=== PATIENT | male | born 1955 | race Caucasian/White ===

== ENCOUNTER 2017-07-02 14:31 | Inpatient (IN) | payer SELFPAY ==
[~2017-07-02] VITALS: Ht 175.3 cm; Wt 88.0 kg
[2017-07-02] MEDS ORDERED: RIVA15T PO (14:37)
[2017-07-02] MEDS ORDERED: IOVERSOL 350 MG/ML 100 ML VIAL ONE (14:45)
[2017-07-02] MEDS ORDERED: SODIUM CHLORIDE 0.9% 100 ML ONE (14:45)
[2017-07-02] MEDS ORDERED: IOVERSOL 320 MG/ML 100 ML VIAL ONE (14:48)
[2017-07-02 14:50] LABS: BASOPHILS % (AUTO) 1.1 % (0.0-2.0); EOSINOPHILS % (AUTO) 5.2 % (1.0-6.0); HEMATOCRIT 37.4 % (41-53); HEMOGLOBIN 12.3 g/dL (13.5-17.5); LYMPHOCYTES % (AUTO) 12.8 % (22.0-44.0); MEAN CORPUSCULAR VOLUME 85 fL (80-100); MONOCYTES # (AUTO) 1.5 K/uL (0.1-1.0); MONOCYTES % (AUTO) 6.4 % (2.0-9.0); NEUTROPHILS # (AUTO) 17.5 K/uL (1.8-7.7); NEUTROPHILS % (AUTO) 74.5 % (40.0-70.0); PLATELET COUNT (AUTO) 341 K/uL (150-450); RED BLOOD CELL COUNT(AUTO) 4.39 MIL/uL (4.50-5.90); RED CELL DISTRIBUTION WIDTH 14.8 % (11.5-14.5)
[2017-07-02 14:59] LABS: ANION GAP 7 mmol/L (8-16); CARBON DIOXIDE 32 mmol/L (22-29); CHLORIDE 98 mmol/L (98-107); GLOMERULAR FILTR. RATE CALC 51 mL/min (>60); GLUCOSE,RANDOM 201 mg/dL (70-110); POTASSIUM 3.5 mmol/L (3.5-5.1); SODIUM SERUM 137 mmol/L (136-145); UREA NITROGEN, BLOOD 27 mg/dL (7-18)
[2017-07-02] MEDS ORDERED: DEXTROSE 50%-WATER 25 GM/50 ML SYRINGE IVP PRN (15:00)
[2017-07-02] MEDS ORDERED: ACETAMINOPHEN 325 MG TABLET PO PRN (15:00)
[2017-07-02] MEDS ORDERED: PERMETHRIN 5% 60 GM CREAM TP ONE (15:00)
[2017-07-02] MEDS ORDERED: MAGNESIUM HYDROXIDE SUSPENSION 30 ML UDCUP PO PRN (15:00)
[2017-07-02] MEDS ORDERED: SODIUM CHLORIDE 0.9% 1,000 ML IV ONE ×2 (15:00→15:45)
[2017-07-02 15:06] LABS: B-TYPE NATRIURETIC PEPTIDE 79 pg/mL (0-100)
[2017-07-02 15:17] LABS: GLUCOSE,POINT OF CARE 175 MG/DL (70-110)
[2017-07-02 15:24] LABS: ALANINE AMINOTRANSFERASE 29 U/L (12-78); ALBUMIN 3.2 g/dL (3.4-5.0); ALKALINE PHOSPHATASE 92 U/L (46-116); ASPARTATE AMINOTRANSFERASE 21 U/L (15-37); BILIRUBIN,TOTAL 0.6 mg/dL (0.1-1.0); CREATINE KINASE MB 2.1 ng/mL (0-5); CREATINE KINASE, TOTAL 155 U/L (39-308); TOTAL PROTEIN, SERUM 6.7 g/dL (6.4-8.2)
[2017-07-02 15:52] LABS: APPEARANCE,URINE CLEAR (CLEAR); BILIRUBIN,URINE NEGATIVE (NEGATIVE); GLUCOSE, URINE (UA) 100 mg/dL (NEGATIVE); KETONES,URINE NEGATIVE (NEGATIVE); OCCULT BLOOD,URINE NEGATIVE (NEGATIVE); PROTEIN,URINE NEGATIVE (NEGATIVE)
[2017-07-02 15:53] LABS: LEUKOCYTE ESTERASE ,URINE NEGATIVE (NEGATIVE); NITRATE,URINE NEGATIVE (NEGATIVE); UROBILINOGEN,URINE 0.2 mg/dL (<=1.0)
[2017-07-02 15:55] LABS: AMPHET/METH SCREEN,URINE NEGATIVE (NEGATIVE); BARBITURATE SCREEN, URINE NEGATIVE (NEGATIVE); BENZODIAZEPINES SCREEN,URINE NEGATIVE (NEGATIVE); CANNABINOID SCREEN,URINE NEGATIVE (NEGATIVE); COCAINE SCREEN,URINE NEGATIVE (NEGATIVE); METHADONE SCREEN, URINE NEGATIVE (NEGATIVE); OPIATE SCREEN,URINE POSITIVE (NEGATIVE); PHENCYCLIDINE SCREEN,URINE NEGATIVE (NEGATIVE); RBC,URINE None Seen /HPF (0-2)
[2017-07-02 15:56] LABS: BACTERIA,URINE None Seen /HPF (None Seen); WBC,URINE 0-2 /HPF (0-5)
[2017-07-02 15:57] LABS: SQUAMOUS EPITHELIAL CELL,UR Rare /LPF (None Seen)
[2017-07-02] MEDS: ATORVASTATIN CALCIUM 20 MG TABLET PO SCH (16:00)
[2017-07-02] MEDS: LINEZOLID 600 MG/ISO-OSM 300 ML IV SCH (16:02)
[2017-07-02 16:16] LABS: INR 1.3 (0.9-1.1); PROTHROMBIN TIME 13.4 SEC (9.4-11.6)
[2017-07-02] MEDS ORDERED: DIPH12.54 PO (16:39)
[2017-07-02] MEDS ORDERED: DIPH25 PO (16:39)
[2017-07-02] MEDS ORDERED: CYAN100 PO (16:39)
[2017-07-02] MEDS ORDERED: ASPI81 PO (16:39)
[2017-07-02] MEDS ORDERED: OMEP20 PO (16:39)
[2017-07-02] MEDS ORDERED: AMLO-511 PO (16:39)
[2017-07-02] MEDS ORDERED: ALBUTEROL SULFATE 2.5 MG/0.5 ML NEB SOLUTION NEB ONE (17:30)
[2017-07-02] MEDS ORDERED: IPRATROPIUM BROMIDE 0.5 MG/2.5 ML NEB SOLUTION NEB ONE (17:30)
[2017-07-02] MEDS ORDERED: GADOBUTROL 1 MMOL/ML 10 ML VIAL IVP ONE (17:45)
[2017-07-02] MEDS ORDERED: LORazepam 1 MG TABLET PO ONE (18:30)
[2017-07-02 18:31] VITALS: BP 134/109
[2017-07-02] MEDS: PIPERACILLIN/TAZO 3.375 GM/D5W 50 ML IV SCH ×2 (18:32→21:28)
[2017-07-02] MEDS ORDERED: LORazepam 2 MG/ML VIAL IVP ONE (19:00)
[2017-07-02] MEDS ORDERED: LORazepam 2 MG/ML VIAL ONE (19:01)
[2017-07-02 20:00] VITALS: BP 118/64
[2017-07-02 20:53] LABS: GLUCOMETER DEV NAME(LOC) 5N 2S; GLUCOSE,POINT OF CARE 299 MG/DL (70-110)
[2017-07-02] MEDS ORDERED: SODIUM CHLORIDE 0.9% 250 ML IV ONE (21:15)
[2017-07-02] MEDS: INSULIN LISPRO 100 UNITS/ML SQ PRN (21:27)
[2017-07-02] MEDS: DOCUSATE SODIUM 100 MG CAPSULE PO SCH (21:27)
[2017-07-02 23:42] VITALS: BP 122/68
[2017-07-03] MEDS: IPRATROPIUM BROMIDE 0.5 MG/2.5 ML NEB SOLUTION NEB PRN ×4 (03:02→22:23)
[2017-07-03] MEDS: ALBUTEROL SULFATE 2.5 MG/0.5 ML NEB SOLUTION NEB PRN ×4 (03:02→22:23)
[2017-07-03] MEDS: PIPERACILLIN/TAZO 3.375 GM/D5W 50 ML IV SCH ×4 (03:03→22:07)
[2017-07-03] MEDS: MORPHINE SULFATE 4 MG/ML SYRINGE IVP PRN ×5 (03:04→20:58)
[2017-07-03] MEDS: LINEZOLID 600 MG/ISO-OSM 300 ML IV SCH ×2 (03:08→15:22)
[2017-07-03 03:57] VITALS: BP 149/59
[2017-07-03] MEDS: INSULIN LISPRO 100 UNITS/ML SQ PRN ×3 (05:48→21:25)
[2017-07-03 06:53] LABS: EOSINOPHILS % (AUTO) 10.5 % (1.0-6.0); HEMATOCRIT 36.2 % (41-53); HEMOGLOBIN 12.2 g/dL (13.5-17.5); LYMPHOCYTES # (AUTO) 2.4 K/uL (1.0-4.8); LYMPHOCYTES % (AUTO) 17.3 % (22.0-44.0); MEAN CORPUSCULAR HEMOGLOBIN 28.5 pg (26.0-34.0); MEAN CORPUSCULAR HGB CONC 33.7 G/dL (31.0-37.0); MEAN CORPUSCULAR VOLUME 85 fL (80-100); MONOCYTES # (AUTO) 1.3 K/uL (0.1-1.0); MONOCYTES % (AUTO) 9.3 % (2.0-9.0); NEUTROPHILS # (AUTO) 8.6 K/uL (1.8-7.7); NEUTROPHILS % (AUTO) 61.9 % (40.0-70.0); PLATELET COUNT (AUTO) 338 K/uL (150-450); RED BLOOD CELL COUNT(AUTO) 4.28 MIL/uL (4.50-5.90); RED CELL DISTRIBUTION WIDTH 14.5 % (11.5-14.5)
[2017-07-03 06:56] LABS: ANION GAP 6 mmol/L (8-16); CALCIUM, TOTAL 8.8 mg/dL (8.8-10.5); CARBON DIOXIDE 31 mmol/L (22-29); CHLORIDE 101 mmol/L (98-107); CREATININE 1.21 mg/dL (0.60-1.30); GLOMERULAR FILTR. RATE CALC > 60 mL/min (>60); GLUCOSE,RANDOM 309 mg/dL (70-110); POTASSIUM 3.9 mmol/L (3.5-5.1); SODIUM SERUM 138 mmol/L (136-145); UREA NITROGEN, BLOOD 20 mg/dL (7-18)
[2017-07-03 07:27] LABS: GLUCOMETER DEV NAME(LOC) 5N 2S; GLUCOSE,POINT OF CARE 301 MG/DL (70-110)
[2017-07-03 07:31] VITALS: BP 137/62
[2017-07-03] MEDS: ATORVASTATIN CALCIUM 20 MG TABLET PO SCH (08:15)
[2017-07-03] MEDS: PANTOPRAZOLE SODIUM 40 MG DR TABLET PO SCH (08:15)
[2017-07-03] MEDS: DOCUSATE SODIUM 100 MG CAPSULE PO SCH ×2 (08:15→21:00)
[2017-07-03 11:32] VITALS: BP 122/49
[2017-07-03 16:04] VITALS: BP 140/55
[2017-07-03] MEDS: HydrOXYzine HCL 25 MG TABLET PO PRN (16:04)
[2017-07-03] MEDS: RIVAROXABAN 15 MG TABLET PO SCH (18:18)
[2017-07-03] MEDS: GlipiZIDE 5 MG TABLET PO SCH (18:18)
[2017-07-03 18:45] LABS: GLUCOMETER DEV NAME(LOC) 5N 2S; GLUCOSE,POINT OF CARE 231 MG/DL (70-110)
[2017-07-03 18:45] LABS: GLUCOMETER DEV NAME(LOC) 5S 2N; GLUCOSE,POINT OF CARE 296 MG/DL (70-110)
[2017-07-03 18:45] LABS: GLUCOMETER DEV NAME(LOC) 5S 2N; GLUCOSE,POINT OF CARE 294 MG/DL (70-110)
[2017-07-03 20:44] VITALS: BP 135/79
[2017-07-03] MEDS: TEMAZEPAM 7.5 MG CAPSULE PO PRN (22:06)
[2017-07-03 23:29] VITALS: BP 120/60
[2017-07-04] MEDS: MORPHINE SULFATE 4 MG/ML SYRINGE IVP PRN ×6 (00:50→21:50)
[2017-07-04] MEDS: IPRATROPIUM BROMIDE 0.5 MG/2.5 ML NEB SOLUTION NEB PRN ×5 (02:15→23:36)
[2017-07-04] MEDS: ALBUTEROL SULFATE 2.5 MG/0.5 ML NEB SOLUTION NEB PRN ×5 (02:15→23:36)
[2017-07-04] MEDS: LINEZOLID 600 MG/ISO-OSM 300 ML IV SCH ×2 (03:08→15:06)
[2017-07-04 03:42] VITALS: BP 133/57
[2017-07-04] MEDS: PIPERACILLIN/TAZO 3.375 GM/D5W 50 ML IV SCH ×4 (04:48→22:36)
[2017-07-04] MEDS: GlipiZIDE 5 MG TABLET PO SCH ×2 (06:43→17:40)
[2017-07-04] MEDS: INSULIN LISPRO 100 UNITS/ML SQ PRN ×4 (06:45→20:59)
[2017-07-04 07:15] VITALS: BP 131/77
[2017-07-04 07:26] LABS: BASOPHILS % (AUTO) 0.8 % (0.0-2.0); HEMATOCRIT 38.4 % (41-53); HEMOGLOBIN 12.8 g/dL (13.5-17.5); LYMPHOCYTES # (AUTO) 2.1 K/uL (1.0-4.8); LYMPHOCYTES % (AUTO) 14.5 % (22.0-44.0); MEAN CORPUSCULAR HEMOGLOBIN 28.3 pg (26.0-34.0); MEAN CORPUSCULAR HGB CONC 33.3 G/dL (31.0-37.0); MEAN CORPUSCULAR VOLUME 85 fL (80-100); MONOCYTES # (AUTO) 1.3 K/uL (0.1-1.0); MONOCYTES % (AUTO) 9.3 % (2.0-9.0); NEUTROPHILS # (AUTO) 9.2 K/uL (1.8-7.7); NEUTROPHILS % (AUTO) 64.4 % (40.0-70.0); RED BLOOD CELL COUNT(AUTO) 4.52 MIL/uL (4.50-5.90); RED CELL DISTRIBUTION WIDTH 14.8 % (11.5-14.5)
[2017-07-04 07:51] LABS: ANION GAP 8 mmol/L (8-16); CALCIUM, TOTAL 8.8 mg/dL (8.8-10.5); CARBON DIOXIDE 27 mmol/L (22-29); CHLORIDE 101 mmol/L (98-107); CHOL/HDL RATIO 2.8 (4.2-7.3); CHOLESTEROL 121 mg/dL (131-200); CREATININE 1.16 mg/dL (0.60-1.30); GLOMERULAR FILTR. RATE CALC > 60 mL/min (>60); GLUCOSE,RANDOM 233 mg/dL (70-110); HDL CHOLESTEROL 44 mg/dL (40-60); LDL CHOL (CALC.) 58 mg/dL (0-130); POTASSIUM 3.7 mmol/L (3.5-5.1); SODIUM SERUM 136 mmol/L (136-145); THYROID STIMULATING HORMONE 1.67 uIU/mL (0.36-3.74); TRIGLYCERIDES 96 mg/dL (15-150); UREA NITROGEN, BLOOD 18 mg/dL (7-18)
[2017-07-04 07:58] LABS: HEMOGLOBIN A1C 11.4 % (4.5-6.2)
[2017-07-04] MEDS: DOCUSATE SODIUM 100 MG CAPSULE PO SCH ×2 (08:08→20:30)
[2017-07-04 08:20] LABS: PLATELET COUNT (AUTO) 357 K/uL (150-450)
[2017-07-04] MEDS: ATORVASTATIN CALCIUM 20 MG TABLET PO SCH (09:07)
[2017-07-04] MEDS: PANTOPRAZOLE SODIUM 40 MG DR TABLET PO SCH (09:07)
[2017-07-04] MEDS: HydrOXYzine HCL 25 MG TABLET PO PRN ×2 (09:07→22:39)
[2017-07-04 11:12] VITALS: BP 151/79
[2017-07-04] MEDS: RIVAROXABAN 15 MG TABLET PO SCH (17:40)
[2017-07-04 18:16] VITALS: BP 135/66
[2017-07-04 19:53] VITALS: BP 155/82
[2017-07-04] MEDS: TERAZOSIN HCL 5 MG CAPSULE PO SCH (20:54)
[2017-07-04] MEDS: INSULIN GLARGINE,HUM.REC.ANLOG 100 UNITS/ML SQ SCH (20:57)
[2017-07-04] MEDS ORDERED: GABAPENTIN 300 MG CAPSULE PO SCH (21:00)
[2017-07-04] MEDS ORDERED: TERAZOSIN HCL 5 MG CAPSULE PO SCH (21:00)
[2017-07-04] MEDS ORDERED: SIMVASTATIN 40 MG TABLET PO SCH (21:00)
[2017-07-04 23:41] VITALS: BP 150/73
[2017-07-05] MEDS ORDERED: SODIUM CHLORIDE 0.9% 100 ML ONE (01:14)
[2017-07-05] MEDS ORDERED: IOVERSOL 350 MG/ML 150 ML VIAL ONE (01:15)
[2017-07-05 01:33] LABS: BASOPHILS % (AUTO) 1.5 % (0.0-2.0); EOSINOPHILS % (AUTO) 6.6 % (1.0-6.0); HEMATOCRIT 38.4 % (41-53); HEMOGLOBIN 12.9 g/dL (13.5-17.5); LYMPHOCYTES # (AUTO) 2.5 K/uL (1.0-4.8); LYMPHOCYTES % (AUTO) 14.3 % (22.0-44.0); MEAN CORPUSCULAR HEMOGLOBIN 28.4 pg (26.0-34.0); MEAN CORPUSCULAR HGB CONC 33.5 G/dL (31.0-37.0); MEAN CORPUSCULAR VOLUME 85 fL (80-100); MONOCYTES # (AUTO) 1.5 K/uL (0.1-1.0); MONOCYTES % (AUTO) 8.7 % (2.0-9.0); NEUTROPHILS # (AUTO) 12.2 K/uL (1.8-7.7); NEUTROPHILS % (AUTO) 68.9 % (40.0-70.0); PLATELET COUNT (AUTO) 382 K/uL (150-450); RED BLOOD CELL COUNT(AUTO) 4.53 MIL/uL (4.50-5.90); RED CELL DISTRIBUTION WIDTH 14.9 % (11.5-14.5)
[2017-07-05 01:43] LABS: ANION GAP 9 mmol/L (8-16); CARBON DIOXIDE 26 mmol/L (22-29); CHLORIDE 102 mmol/L (98-107); GLOMERULAR FILTR. RATE CALC > 60 mL/min (>60); GLUCOSE,RANDOM 265 mg/dL (70-110); POTASSIUM 3.7 mmol/L (3.5-5.1); SODIUM SERUM 137 mmol/L (136-145); UREA NITROGEN, BLOOD 17 mg/dL (7-18)
[2017-07-05 01:49] LABS: ALANINE AMINOTRANSFERASE 24 U/L (12-78); ALBUMIN 2.9 g/dL (3.4-5.0); ALKALINE PHOSPHATASE 89 U/L (46-116); ASPARTATE AMINOTRANSFERASE 20 U/L (15-37); BILIRUBIN,TOTAL 0.6 mg/dL (0.1-1.0); TOTAL PROTEIN, SERUM 6.7 g/dL (6.4-8.2)
[2017-07-05] MEDS: LINEZOLID 600 MG/ISO-OSM 300 ML IV SCH ×2 (03:21→15:09)
[2017-07-05] MEDS ORDERED: SODIUM CHLORIDE 0.9% 250 ML IV ONE ×2 (03:25→22:22)
[2017-07-05] MEDS: ALBUTEROL SULFATE 2.5 MG/0.5 ML NEB SOLUTION NEB PRN ×5 (04:38→23:04)
[2017-07-05] MEDS: IPRATROPIUM BROMIDE 0.5 MG/2.5 ML NEB SOLUTION NEB PRN ×5 (04:39→23:04)
[2017-07-05 04:52] VITALS: BP 138/69
[2017-07-05] MEDS: PIPERACILLIN/TAZO 3.375 GM/D5W 50 ML IV SCH ×4 (05:42→22:18)
[2017-07-05 06:10] LABS: APPEARANCE,URINE CLEAR (CLEAR); BILIRUBIN,URINE NEGATIVE (NEGATIVE); GLUCOSE, URINE (UA) >=1000 mg/dL (NEGATIVE); KETONES,URINE NEGATIVE (NEGATIVE); LEUKOCYTE ESTERASE ,URINE NEGATIVE (NEGATIVE); NITRATE,URINE NEGATIVE (NEGATIVE); OCCULT BLOOD,URINE NEGATIVE (NEGATIVE); PH,URINE 6.5 (5.0-8.0); PROTEIN,URINE NEGATIVE (NEGATIVE); UROBILINOGEN,URINE 0.2 mg/dL (<=1.0)
[2017-07-05 06:26] LABS: BACTERIA,URINE Few /HPF (None Seen); RBC,URINE 0-2 /HPF (0-2); WBC,URINE 0-2 /HPF (0-5)
[2017-07-05 06:27] LABS: SQUAMOUS EPITHELIAL CELL,UR Rare /LPF (None Seen)
[2017-07-05] MEDS: INSULIN LISPRO 100 UNITS/ML SQ PRN ×4 (06:28→20:53)
[2017-07-05] MEDS: GlipiZIDE 5 MG TABLET PO SCH ×2 (06:29→17:31)
[2017-07-05 07:14] VITALS: BP 132/63
[2017-07-05 07:26] LABS: BASOPHILS % (AUTO) 1.1 % (0.0-2.0); EOSINOPHILS % (AUTO) 11.4 % (1.0-6.0); HEMATOCRIT 37.5 % (41-53); HEMOGLOBIN 12.6 g/dL (13.5-17.5); LYMPHOCYTES # (AUTO) 2.3 K/uL (1.0-4.8); LYMPHOCYTES % (AUTO) 16.2 % (22.0-44.0); MEAN CORPUSCULAR HEMOGLOBIN 28.4 pg (26.0-34.0); MEAN CORPUSCULAR HGB CONC 33.7 G/dL (31.0-37.0); MEAN CORPUSCULAR VOLUME 84 fL (80-100); MONOCYTES # (AUTO) 1.2 K/uL (0.1-1.0); MONOCYTES % (AUTO) 8.4 % (2.0-9.0); NEUTROPHILS % (AUTO) 62.9 % (40.0-70.0); PLATELET COUNT (AUTO) 381 K/uL (150-450); RED BLOOD CELL COUNT(AUTO) 4.45 MIL/uL (4.50-5.90); RED CELL DISTRIBUTION WIDTH 14.9 % (11.5-14.5)
[2017-07-05 07:48] LABS: ANION GAP 8 mmol/L (8-16); CARBON DIOXIDE 26 mmol/L (22-29); CHLORIDE 101 mmol/L (98-107); CREATININE 1.13 mg/dL (0.60-1.30); GLOMERULAR FILTR. RATE CALC > 60 mL/min (>60); GLUCOSE,RANDOM 267 mg/dL (70-110); POTASSIUM 3.8 mmol/L (3.5-5.1); SODIUM SERUM 135 mmol/L (136-145); UREA NITROGEN, BLOOD 14 mg/dL (7-18)
[2017-07-05] MEDS: MULTIVITAMINS WITH IRON TABLET PO SCH (08:34)
[2017-07-05] MEDS: PANTOPRAZOLE SODIUM 40 MG DR TABLET PO SCH (08:35)
[2017-07-05] MEDS: FUROSEMIDE 20 MG TABLET PO SCH (08:35)
[2017-07-05] MEDS: ATORVASTATIN CALCIUM 20 MG TABLET PO SCH (08:35)
[2017-07-05] MEDS: DOCUSATE SODIUM 100 MG CAPSULE PO SCH ×2 (08:40→19:58)
[2017-07-05] MEDS: HydrOXYzine HCL 25 MG TABLET PO PRN ×3 (08:40→22:18)
[2017-07-05] MEDS ORDERED: FUROSEMIDE 20 MG TABLET PO SCH (09:00)
[2017-07-05] MEDS: MORPHINE SULFATE 4 MG/ML SYRINGE IVP PRN ×2 (11:19→20:51)
[2017-07-05 11:45] VITALS: BP 132/73
[2017-07-05 16:18] VITALS: BP 135/72
[2017-07-05] MEDS: RIVAROXABAN 15 MG TABLET PO SCH (17:31)
[2017-07-05 19:26] VITALS: BP 155/84
[2017-07-05] MEDS: TERAZOSIN HCL 5 MG CAPSULE PO SCH (20:50)
[2017-07-05] MEDS: INSULIN GLARGINE,HUM.REC.ANLOG 100 UNITS/ML SQ SCH (20:54)
[2017-07-05] MEDS ORDERED: TraZODone HCL 50 MG TABLET PO SCH (21:00)
[2017-07-05] MEDS ORDERED: TraZODone HCL 50 MG TABLET PO PRN (21:00)
[2017-07-05 23:47] VITALS: BP 121/50
[2017-07-06] MEDS: TEMAZEPAM 7.5 MG CAPSULE PO PRN (00:16)
[2017-07-06 02:53] LABS: GLUCOMETER DEV NAME(LOC) 5S 2N; GLUCOSE,POINT OF CARE 313 MG/DL (70-110)
[2017-07-06 02:53] LABS: GLUCOMETER DEV NAME(LOC) 5S 2N; GLUCOSE,POINT OF CARE 263 MG/DL (70-110)
[2017-07-06 02:53] LABS: GLUCOMETER DEV NAME(LOC) 5S 2N; GLUCOSE,POINT OF CARE 293 MG/DL (70-110)
[2017-07-06 02:53] LABS: GLUCOMETER DEV NAME(LOC) 5S 2N; GLUCOSE,POINT OF CARE 226 MG/DL (70-110)
[2017-07-06 02:53] LABS: GLUCOMETER DEV NAME(LOC) 5S 2N; GLUCOSE,POINT OF CARE 269 MG/DL (70-110)
[2017-07-06 02:53] LABS: GLUCOMETER DEV NAME(LOC) 5S 2N; GLUCOSE,POINT OF CARE 280 MG/DL (70-110)
[2017-07-06 02:53] LABS: GLUCOMETER DEV NAME(LOC) 5S 2N; GLUCOSE,POINT OF CARE 236 MG/DL (70-110)
[2017-07-06 02:53] LABS: GLUCOMETER DEV NAME(LOC) 5S 2N; GLUCOSE,POINT OF CARE 277 MG/DL (70-110)
[2017-07-06] MEDS: LINEZOLID 600 MG/ISO-OSM 300 ML IV SCH ×2 (02:58→15:18)
[2017-07-06 03:13] LABS: GLUCOMETER DEV NAME(LOC) 5N 2S; GLUCOSE,POINT OF CARE 272 MG/DL (70-110)
[2017-07-06 03:13] LABS: GLUCOMETER DEV NAME(LOC) 5N 2S; GLUCOSE,POINT OF CARE 295 MG/DL (70-110)
[2017-07-06] MEDS: ALBUTEROL SULFATE 2.5 MG/0.5 ML NEB SOLUTION NEB PRN ×5 (03:28→20:21)
[2017-07-06] MEDS: IPRATROPIUM BROMIDE 0.5 MG/2.5 ML NEB SOLUTION NEB PRN ×5 (03:28→20:21)
[2017-07-06 03:51] VITALS: BP 91/45
[2017-07-06 03:58] VITALS: BP 135/63
[2017-07-06] MEDS: MORPHINE SULFATE 4 MG/ML SYRINGE IVP PRN ×4 (04:01→22:52)
[2017-07-06] MEDS: PIPERACILLIN/TAZO 3.375 GM/D5W 50 ML IV SCH ×4 (04:39→21:19)
[2017-07-06 06:38] LABS: BASOPHILS % (AUTO) 0.8 % (0.0-2.0); EOSINOPHILS % (AUTO) 9.7 % (1.0-6.0); HEMATOCRIT 37.4 % (41-53); HEMOGLOBIN 12.7 g/dL (13.5-17.5); LYMPHOCYTES # (AUTO) 1.5 K/uL (1.0-4.8); MEAN CORPUSCULAR HEMOGLOBIN 28.6 pg (26.0-34.0); MEAN CORPUSCULAR HGB CONC 33.9 G/dL (31.0-37.0); MEAN CORPUSCULAR VOLUME 84 fL (80-100); MONOCYTES # (AUTO) 1.4 K/uL (0.1-1.0); MONOCYTES % (AUTO) 12.5 % (2.0-9.0); NEUTROPHILS # (AUTO) 6.9 K/uL (1.8-7.7); PLATELET COUNT (AUTO) 380 K/uL (150-450); RED BLOOD CELL COUNT(AUTO) 4.44 MIL/uL (4.50-5.90); RED CELL DISTRIBUTION WIDTH 14.8 % (11.5-14.5)
[2017-07-06] MEDS: GlipiZIDE 5 MG TABLET PO SCH ×2 (06:40→17:27)
[2017-07-06] MEDS: INSULIN LISPRO 100 UNITS/ML SQ PRN ×4 (06:41→21:18)
[2017-07-06 06:56] VITALS: BP 150/81
[2017-07-06 06:58] LABS: GLUCOMETER DEV NAME(LOC) 5N 2S; GLUCOSE,POINT OF CARE 237 MG/DL (70-110)
[2017-07-06 07:19] LABS: ANION GAP 10 mmol/L (8-16); CALCIUM, TOTAL 8.8 mg/dL (8.8-10.5); CARBON DIOXIDE 26 mmol/L (22-29); CHLORIDE 102 mmol/L (98-107); CREATININE 1.13 mg/dL (0.60-1.30); GLOMERULAR FILTR. RATE CALC > 60 mL/min (>60); GLUCOSE,RANDOM 287 mg/dL (70-110); POTASSIUM 3.5 mmol/L (3.5-5.1); SODIUM SERUM 138 mmol/L (136-145); UREA NITROGEN, BLOOD 15 mg/dL (7-18)
[2017-07-06] MEDS: DOCUSATE SODIUM 100 MG CAPSULE PO SCH ×2 (08:26→21:00)
[2017-07-06] MEDS: MULTIVITAMINS WITH IRON TABLET PO SCH (08:27)
[2017-07-06] MEDS: ATORVASTATIN CALCIUM 20 MG TABLET PO SCH (08:27)
[2017-07-06] MEDS: PANTOPRAZOLE SODIUM 40 MG DR TABLET PO SCH (08:27)
[2017-07-06] MEDS: FUROSEMIDE 20 MG TABLET PO SCH (08:27)
[2017-07-06] MEDS: HydrOXYzine HCL 25 MG TABLET PO PRN ×3 (08:27→21:17)
[2017-07-06 17:28] LABS: GLUCOMETER DEV NAME(LOC) 5S 2N; GLUCOSE,POINT OF CARE 269 MG/DL (70-110)
[2017-07-06] MEDS: RIVAROXABAN 15 MG TABLET PO SCH (18:00)
[2017-07-06 20:00] VITALS: BP_SYST 145; BP_SYST 162; BP_DIAS 80
[2017-07-06 20:09] LABS: C.DIFF GDH ANTIGEN, Stool Negative (Negative); C.DIFF TOXINS A&B, Stool Negative (Negative)
[2017-07-06] MEDS: OXYGEN THERAPY IH SCH (20:21)
[2017-07-06] MEDS ORDERED: SODIUM CHLORIDE 0.9% 500 ML IV ONE (20:52)
[2017-07-06] MEDS ORDERED: INSULIN GLARGINE,HUM.REC.ANLOG 100 UNITS/ML SQ SCH (21:00)
[2017-07-06] MEDS: TERAZOSIN HCL 5 MG CAPSULE PO SCH (21:17)
[2017-07-06 22:22] LABS: GLUCOMETER DEV NAME(LOC) 6N 2D; GLUCOSE,POINT OF CARE 266 MG/DL (70-110)
[2017-07-07] VITALS: BP 142/60
[2017-07-07] MEDS: ALBUTEROL SULFATE 2.5 MG/0.5 ML NEB SOLUTION NEB PRN ×3 (00:27→09:54)
[2017-07-07] MEDS: IPRATROPIUM BROMIDE 0.5 MG/2.5 ML NEB SOLUTION NEB PRN ×3 (00:27→09:54)
[2017-07-07 04:00] VITALS: BP 136/72
[2017-07-07] MEDS: LINEZOLID 600 MG/ISO-OSM 300 ML IV SCH (04:13)
[2017-07-07] MEDS: PIPERACILLIN/TAZO 3.375 GM/D5W 50 ML IV SCH ×2 (04:13→08:44)
[2017-07-07 05:08] LABS: GLUCOMETER DEV NAME(LOC) 5N 2S; GLUCOSE,POINT OF CARE 292 MG/DL (70-110)
[2017-07-07] MEDS: HydrOXYzine HCL 25 MG TABLET PO PRN (05:43)
[2017-07-07] MEDS: INSULIN LISPRO 100 UNITS/ML SQ PRN (05:43)
[2017-07-07] MEDS: GlipiZIDE 5 MG TABLET PO SCH (05:44)
[2017-07-07] MEDS: MORPHINE SULFATE 4 MG/ML SYRINGE IVP PRN (05:44)
[2017-07-07 06:06] LABS: HEMATOCRIT 37.2 % (41-53); HEMOGLOBIN 12.5 g/dL (13.5-17.5); LYMPHOCYTES % (AUTO) 18.7 % (22.0-44.0); MEAN CORPUSCULAR HEMOGLOBIN 28.5 pg (26.0-34.0); MEAN CORPUSCULAR HGB CONC 33.6 G/dL (31.0-37.0); MEAN CORPUSCULAR VOLUME 85 fL (80-100); MONOCYTES # (AUTO) 1.2 K/uL (0.1-1.0); MONOCYTES % (AUTO) 10.7 % (2.0-9.0); NEUTROPHILS % (AUTO) 54.6 % (40.0-70.0); PLATELET COUNT (AUTO) 384 K/uL (150-450); RED BLOOD CELL COUNT(AUTO) 4.39 MIL/uL (4.50-5.90); RED CELL DISTRIBUTION WIDTH 14.9 % (11.5-14.5)
[2017-07-07 06:53] LABS: ANION GAP 9 mmol/L (8-16); CARBON DIOXIDE 27 mmol/L (22-29); CHLORIDE 103 mmol/L (98-107); CREATININE 1.13 mg/dL (0.60-1.30); GLOMERULAR FILTR. RATE CALC > 60 mL/min (>60); GLUCOSE,RANDOM 239 mg/dL (70-110); POTASSIUM 3.5 mmol/L (3.5-5.1); SODIUM SERUM 139 mmol/L (136-145); UREA NITROGEN, BLOOD 16 mg/dL (7-18)
[2017-07-07 07:58] LABS: GLUCOMETER DEV NAME(LOC) 6N 2D; GLUCOSE,POINT OF CARE 233 MG/DL (70-110)
[2017-07-07] MEDS: OXYGEN THERAPY IH SCH (08:05)
[2017-07-07 08:37] VITALS: BP 152/71
[2017-07-07] MEDS: PANTOPRAZOLE SODIUM 40 MG DR TABLET PO SCH (08:44)
[2017-07-07] MEDS: MULTIVITAMINS WITH IRON TABLET PO SCH (08:44)
[2017-07-07] MEDS: FUROSEMIDE 20 MG TABLET PO SCH (08:45)
[2017-07-07] MEDS: ATORVASTATIN CALCIUM 20 MG TABLET PO SCH (08:45)
[2017-07-07] MEDS: DOCUSATE SODIUM 100 MG CAPSULE PO SCH (08:52)
[2017-07-07 11:54] VITALS: BP 140/80
[2017-07-07] MEDS ORDERED: ATOR20TA86 PO (12:26)
== END 2017-07-07 14:00 | disposition home or self-care (01) | DRG 947 ==
LOC: EMS 14:32 → 5N 17:17 → 6N 07-06 18:45
PROVIDERS: ADMIT Internal Medicine; ATTEND Internal Medicine
DX: R53.1 Weakness (principal); G93.40 Encephalopathy, unspecified; R65.10 Systemic inflammatory response syndrome (SIRS) of non-infectious origin without acute organ dysfunction; E11.40 Type 2 diabetes mellitus with diabetic neuropathy, unspecified; E11.65 Type 2 diabetes mellitus with hyperglycemia; F11.20 Opioid dependence, uncomplicated; B86 Scabies; E78.5 Hyperlipidemia, unspecified; I10 Essential (primary) hypertension; R19.7 Diarrhea, unspecified; G89.29 Other chronic pain; Z79.4 Long term (current) use of insulin; Z96.653 Presence of artificial knee joint, bilateral; Z79.82 Long term (current) use of aspirin; Z85.07 Personal history of malignant neoplasm of pancreas; Z90.411 Acquired partial absence of pancreas; Z88.1 Allergy status to other antibiotic agents; Z79.899 Other long term (current) drug therapy; Z86.73 Personal history of transient ischemic attack (TIA), and cerebral infarction without residual deficits
CPT/HCPCS: 70450; 70496; 70553; 82607; 82962; 83036; 83605; 84443; 87040; 87324; 87449; 93005; 94640; 96365; 97112; 97163; 97167; 99291; A9585; J1815; J2020; J2060; J2270; J2543; J7040; J7050